=== PATIENT | female | born 1990 | race Caucasian/White ===

== ENCOUNTER 2022-04-20 02:09 | Outpatient (CLI) | payer BC ==
[~2022-04-20 02:09] MED LIST: COLACE 100MG C100 MG PO
== END 2022-04-20 03:11 | disposition home or self-care (01) ==
LOC: GENOP 02:09
DX: O47.1 False labor at or after 37 completed weeks of gestation (principal); Z3A.37 37 weeks gestation of pregnancy
CPT/HCPCS: 81001; G0463

== ENCOUNTER 2022-05-04 05:08 | Inpatient (IN) | payer BC ==
[~2022-05-04] VITALS: Ht 165.1 cm; Wt 99.3 kg
[2022-05-04 05:43] LABS: HEMOGLOBIN 9.2 gm/dl (12.3-15.3); RED BLOOD COUNT 4.2 M/UL (4.00-5.10); WHITE BLOOD COUNT 8.5 K/UL (4.5-11.0)
[2022-05-04] MEDS ORDERED: IBUPROFEN800 MG PO (17:02)
[2022-05-04] MEDS ORDERED: COLACE 100MG C100 MG PO (17:02)
[2022-05-04] MEDS ORDERED: HYDROCODON-ACE1 EAC2 PO (17:02)
[2022-05-04] MEDS ORDERED: HEMOCYTE324 MG PO (17:02)
[2022-05-05 05:48] LABS: HEMOGLOBIN 7.6 gm/dl (12.3-15.3)
== END 2022-05-06 22:00 | disposition home or self-care (01) | DRG 788 ==
LOC: GENOP 05:08 → OB 05:09
PROVIDERS: Obstetrics & Gynecology; ADMIT Obstetrics & Gynecology
PROC: 10H073Z Insertion of Monitoring Electrode into Products of Conception, Via Natural or Artificial Opening (ICD-10-PCS; 2022-05-04)
PROC: 10H07YZ Insertion of Other Device into Products of Conception, Via Natural or Artificial Opening (ICD-10-PCS; 2022-05-04)
PROC: 10907ZC Drainage of Amniotic Fluid, Therapeutic from Products of Conception, Via Natural or Artificial Opening (ICD-10-PCS; 2022-05-04)
PROC: 4A1HXCZ Monitoring of Products of Conception, Cardiac Rate, External Approach (ICD-10-PCS; 2022-05-04)
PROC: 3E033VJ Introduction of Other Hormone into Peripheral Vein, Percutaneous Approach (ICD-10-PCS; 2022-05-04)
PROC: 3E0234Z Introduction of Serum, Toxoid and Vaccine into Muscle, Percutaneous Approach (ICD-10-PCS; 2022-05-04)
PROC: 10D00Z1 Extraction of Products of Conception, Low, Open Approach (ICD-10-PCS; principal; 2022-05-04 15:47)
DX: O76 Abnormality in fetal heart rate and rhythm complicating labor and delivery (principal); Z37.0 Single live birth; O99.02 Anemia complicating childbirth; Z20.822 Contact with and (suspected) exposure to COVID-19; D64.9 Anemia, unspecified; Z3A.39 39 weeks gestation of pregnancy; Z28.310 Unvaccinated for COVID-19; O69.1XX0 Labor and delivery complicated by cord around neck, with compression, not applicable or unspecified; Z23 Encounter for immunization
CPT/HCPCS: 81001; 82800; 85014; 85018; 85025; 85461; 86850; 86900; 86901; 90715; C9113; J0690; J1885; J2210; J2270; J2274; J2370; J2405; J2590; J2790; J3010